=== PATIENT | male | born 1950 | race Caucasian/White ===

== ENCOUNTER → 2022-11-10 14:28 | Outpatient (BNVA) | payer MEDICARE, MEDICAID, SELFPAY | PROVIDERS: PCP Family Medicine; Referring Provider Family Medicine; Visit Provider Internal Medicine | DX: I20.9 Angina pectoris, unspecified (principal); I10 Essential (primary) hypertension | CPT/HCPCS: 93005; 99202 ==

== ENCOUNTER → 2022-12-02 10:54 | Outpatient (REF) | payer MEDICARE, MEDICAID, SELFPAY ==
--- NOTE | 2022-12-02 11:01 | CA_ITS ---
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 Study Quality: Adequate ECG Rhythm: Sinus Conclusions: - 1. Normal LV systolic function with measured LVEF of 65-70% 2. Normal cardiac valvular Dopplers 3. Mildly dilated ascending aorta 3.8 cm 4. Normal RV systolic pressure 5. No pericardial effusion Findings Left Ventricle Normal left ventricular size, thickness, and systolic function. The visually estimated ejection fraction is between 65-70%. Spectral Doppler is indicative of a normal filling pattern. Peak GLS is -16.2%, which is reduced. Wall Motion Rest Echo Findings The basal inferior segment is hypokinetic. All other scored wall segments showed normal motion. Right Ventricle Normal right ventricular cavity size and systolic function. Atria The left atrium is normal in size. There is no evidence of interatrial shunt. The right atrium is normal in size. Aortic Valve The aortic valve was not well visualized. There is no aortic valve stenosis. There is no aortic valve regurgitation. Mitral Valve There is mild anterior and posterior mitral leaflet thickening. There is mild anterior mitral annular calcification. There is trace mitral valve regurgitation. There is no mitral valve stenosis. Pulmonic Valve The pulmonic valve was not well visualized. Tricuspid Valve Likely normal tricuspid valve structure and function. There is mild tricuspid valve regurgitation. The right ventricular systolic pressure is normal. The right ventricular systolic pressure is 27 mmHg. Normal right atrial pressure. There is no evidence of pulmonary hypertension. Great Vessels The pulmonary artery was not well visualized. There is mild dilatation of the ascending aorta measuring 3.80 cm. Venous The inferior vena cava is normal in size and collapses greater than 50% with inspiration. Pericardium/Pleural There is no evidence of pericardial effusion. Prior Study Comparison No prior study available for comparison. Measurements 2D Linear Measurements IVSd: 1.41 0.6-0.9/0.6-1.0 cm LVIDd: 4.92 3.9-5.3/4.2-5.9 cm LVIDd Index: 2.60 2.4-3.2/2.2-3.1 cm/m2 LVIDs: 2.78 2.0-3.6 cm LVPWd: 0.76 0.7-1.1 cm Ao Root: 3.50 2.1-3.5 cm LA Diam: 4.00 2.7-3.8/3.0-4.0 cm LAIDs Index: 2.12 1.5-2.3 cm/m2 LV Mass: 246.80 67-162/88-224 g LV Mass Index: 130.58 43-95/49-115 g/m2 LVOT Diam: 2.20 3.0+(-)1.3 cm 2D Systolic Function EF 4C: 63.10 >55% EF 2C: 72.90 >55% EF BiP: 68.90 >55% Mitral Valve MV Pk E: 0.69 MV PK A: 0.59 MV Decel Time: 301.00 E/A: 1.20 E'Lateral: 6.09 E'Medial: 5.66 E/E' Med: 12.10 E/E' Lat: 11.30 PHT: 88.00 MVA PHT: 2.50 Decel Dickenson: 2.27 Aortic Valve AoV Pk Carson: 1.49 AoV Pk Grad: 9.00 JAZMIN: 2.48 LVOT LVOT Pk Carson: 1.05 LVOT Mn Carson: 0.65 LVOT VTI: 0.20 LVOT Pk Grad: 4.00 LVOT Mn Grad: 2.00 LVOT Diam: 2.20 LVOT Area: 3.80 Diastolic Function MV Pk E: 0.69 MV Pk A: 0.59 E/A: 1.20 E'Medial: 5.66 E/E' Med: 12.10 E' Laterial: 6.09 E/E' Lat: 11.30 Right Ventricle TAPSE (mm): 19.50 TVS' Carson: 14.00 Tricuspid Valve TR Pk Carson: 2.30 TR Pk Grad: 21.00 RA Press: 3.00 RVSP: 27.00 Great Vessels Aorta Ao Root-2D: 3.50 2.0-3.7 cm Ao Asc: 3.80 2.1-3.4 cm Pulmonary Veins Pulm Vein S/D 2.00 Pulmonary Valve PV Pk Carson: 0.98 Peak PV Grad: 4.00 Updated in Other Vendor System with Status of Final Elías Krishnan MD electronically signed on 12/03/2022 10:54:47 AM with status of Final
== END ==
LOC: HO.CARD 10:54
PROVIDERS: PCP Family Medicine; Visit Provider Internal Medicine
DX: I25.119 Atherosclerotic heart disease of native coronary artery with unspecified angina pectoris (principal)
CPT/HCPCS: 93306; 93356

== ENCOUNTER 2023-01-25 10:42 | Outpatient (REF) | payer MEDICARE, MEDICAID, SELFPAY ==
[2023-01-25 12:40] LABS: Anion Gap 12 (12-20); Blood Urea Nitrogen 18 mg/dL (9-16); Calcium 9.4 mg/dL (8.4-10.2); Carbon Dioxide 28 mmol/L (22-29); Chloride 108 mmol/L (96-108); Estimated Glomerular Filt Rate > 60; Glucose Random 83 mg/dL (60-115); Potassium 4.7 mmol/L (3.3-5.1); Sodium 143 mmol/L (135-145)
== END 2023-01-25 10:43 | disposition home or self-care (01) ==
LOC: HO.LAB 10:42
PROVIDERS: PCP Family Medicine; Visit Provider Internal Medicine
DX: I20.9 Angina pectoris, unspecified (principal)
CPT/HCPCS: 36415; 80048

== ENCOUNTER → 2023-02-23 13:10 | Outpatient (BNVA) | payer MEDICARE, MEDICAID, SELFPAY | PROVIDERS: PCP Family Medicine; Referring Provider Family Medicine; Visit Provider Nurse Practitioner Family ==

== ENCOUNTER 2023-04-02 14:36 | Outpatient (REF) | payer MEDICARE, MEDICAID, SELFPAY ==
[2023-04-02 15:56] LABS: Anion Gap 14 (12-20); Blood Urea Nitrogen 15 mg/dL (9-16); Calcium 9.6 mg/dL (8.4-10.2); Carbon Dioxide 26 mmol/L (22-29); Chloride 106 mmol/L (96-108); Estimated Glomerular Filt Rate > 60; Glucose Random 85 mg/dL (60-115); Potassium 4.1 mmol/L (3.3-5.1); Sodium 142 mmol/L (135-145)
== END 2023-04-02 14:37 | disposition home or self-care (01) ==
LOC: HO.LAB 14:36
PROVIDERS: Visit Provider Internal Medicine
DX: I10 Essential (primary) hypertension (principal); I20.9 Angina pectoris, unspecified
CPT/HCPCS: 36415; 80048

== ENCOUNTER 2023-04-19 08:11 | Outpatient (REF) | payer MEDICARE, MEDICAID, SELFPAY ==
[2023-04-19 08:30] LABS: MANUAL DIFF FLAG NO
[2023-04-19 09:06] LABS: Basophils Percent Auto 0.5 % (0-2); Eosinophils Absolute Auto 0.2 X10*3/uL (0.0-0.4); Eosinophils Percent Auto 3.1 % (0-4); Hematocrit 47.9 % (42.0-52.0); Hemoglobin 15.2 g/dl (14.0-18.0); Imm Gran Abs Auto 0.03 X10*3/uL (0.00-0.03); Imm Gran Pct Auto 0.5 % (0.0-0.4); Lymphocytes Absolute Auto 1.4 X10*3/uL (1.2-4.9); Lymphocytes Percent Auto 22.4 % (20-40); Mean Corpuscular HGB Conc 31.7 g/dl (31.0-36.0); Mean Corpuscular Hemoglobin 28.6 pg (27.0-33.0); Mean Platelet Volume 10.3 fL (9.4-12.4); Monocytes Absolute Auto 0.5 X10*3/uL (0.1-1.2); Monocytes Percent Auto 7.4 % (2-11); Neutrophils Absolute Auto 4.2 x10*3/uL (2.0-8.3); Neutrophils Percent Auto 66.1 % (45-73); Platelet Count 189 X10*3/uL (160-400); Red Blood Count 5.32 X10*6/uL (4.60-5.80); Red Cell Distribution Width 13.7 % (11.0-16.0); White Blood Count 6.4 X10*3/uL (4.8-10.8)
[2023-04-19 09:12] LABS: INTERNATIONAL NORM RATIO 1.1 (0.9-1.1); Prothrombin Time 13.4 SEC (11.1-13.3)
[2023-04-19 09:42] LABS: Anion Gap 14 (12-20); Blood Urea Nitrogen 15 mg/dL (9-16); Calcium 9.2 mg/dL (8.4-10.2); Carbon Dioxide 25 mmol/L (22-29); Chloride 107 mmol/L (96-108); Estimated Glomerular Filt Rate > 60; Glucose Random 81 mg/dL (60-115); Potassium 4.7 mmol/L (3.3-5.1); Sodium 141 mmol/L (135-145)
== END 2023-04-19 08:12 | disposition home or self-care (01) ==
LOC: HO.LAB 08:11
PROVIDERS: PCP Family Medicine; Visit Provider Nurse Practitioner
DX: R93.89 Abnormal findings on diagnostic imaging of other specified body structures (principal); I10 Essential (primary) hypertension; I20.9 Angina pectoris, unspecified
CPT/HCPCS: 36415; 80048; 85025; 85610

== ENCOUNTER → 2023-05-13 23:59 | Outpatient (BNV) | payer MEDICARE, MEDICAID, SELFPAY | PROVIDERS: PCP Family Medicine; Visit Provider Internal Medicine Cardiovascular Disease | DX: I20.89 Other forms of angina pectoris (principal); R93.1 Abnormal findings on diagnostic imaging of heart and coronary circulation | CPT/HCPCS: 93458; 93571; 99152 ==

== ENCOUNTER 2023-05-26 14:28 | Outpatient (AMB) | payer MEDICARE, MEDICAID, SELFPAY ==
[2023-05-26 14:32] VITALS: BP 132/74; PULSE 68; BMI 28.5
--- NOTE | 2023-05-26 14:32 | MHC.OFFVIS ---
Intake Vital Signs 05/26/23 14:32 Height 5 ft 6 in Weight 176 lb 5.917 oz BMI 28.5 BP 132/74 Blood Pressure Location Lt brachial Position Sitting Pulse 68 Intake Visit Reasons: Follow up post cardiac cath Intake Note: follow up post cardiac cath feel good A&P Mechanic Required: Yes A&P Mechanic Language: Terrazzo Tile Setter Name: Daughter form signed Information Interpreted: non-clinical & clinical Accompanied by: Daughter Allergies No Known Allergies Allergy (Verified 05/26/23 14:36) Medication List - Last Reconciled 05/26/23 by Tessie Mora NP amlodipine 5 mg PO QAM aspirin 81 mg PO DAILY 90 days blood pressure test kit-large As directed cholecalciferol (vitamin D3) 25 mcg PO QAM hydrochlorothiazide 25 mg PO DAILY metoprolol succinate ER 25 mg PO DAILY rosuvastatin 20 mg PO DAILY HPI HPI Comments History of Present Illness Details 73-year-old male presents for a post cardiac cath follow-up. He is accompanied by his daughter who translates ASL for him. He reports doing well since the cardiac cath. No tenderness, redness, or bruising noted at right radial site. He reports he has occasional chest discomfort in the morning that is muscular in nature. He did no start the amlodipine or metoprolol as he was afraid of possible interactions with his medications,. [facility] Medical History Congenital deafness Essential hypertension Surgical History Hx of colonoscopy (~2012) Hx of appendectomy Family History Mother Cancer Diabetes Father Diabetes Alcohol intake: never Patient Tobacco Use Status: Never used Tobacco Substance Use Type: Marijuana Review of Systems Const Denies chills, Denies fatigue, Denies fever(s), Denies frequent falls, Denies weakness, Denies weight gain and Denies weight loss ENT Denies dizziness Card Denies chest pain, Denies chest pain with activity, Denies syncope, Denies rapid heart rate, Denies pedal edema, Denies irregular heart rhythm, Denies leg edema, Denies lightheadedness, Denies palpitations, Denies dyspnea, Denies dyspnea on exertion, Denies orthopnea and Denies other (LOC) Resp Denies cough, Denies dyspnea and Denies dyspnea on exertion GI Denies hematochezia and Denies change in bowel habits Musc Denies abnormal gait, Denies arthralgias, Denies muscle weakness, Denies numbness, Denies radiating pain into limb and Denies tingling Neuro Denies abnormal gait, Denies dizziness, Denies syncope, Denies frequent falls, Denies numbness, Denies tingling and Denies weakness Endo Denies fatigue and Denies palpitations Physical Exam Vital Signs: Last Vital Signs Pulse 68 05/26/23 14:32 BP 132/74 05/26/23 14:32 BMI result Body Mass Index 28.5 Const General: healthy appearing and no acute distress Orientation/consciousness: patient oriented x3 HEENT Head: Yes normal to inspection Eyes General: appearance normal, both eyes and all related structures Neck Neck: Yes normal visual inspection Chest Chest palpation & inspection: normal inspection of the chest Resp Effort & Inspection: normal respiratory effort Auscultation: clear to auscultation bilaterally Cardio Jugular venous distension: no JVD Palpation: normal PMI Rate: regular rate Rhythm: regular rhythm Heart sounds: S1 normal heart sound present, S2 normal heart sound present, no click, no gallops, no murmurs and no rubs GI Inspection: Yes normal to inspection Palpation (GI): Soft to palpation Skin General skin exam: no rashes or lesions noted Neuro General: patient oriented x3 Extrem Other: Right radial site intact,no erythema, bruising, or tenderness. pulse presents General: Yes normal to inspection Psych Appearance: grossly normal Assessment & Plan Assessment & Plan (1) S/P cardiac cath: Comment: LMCA: Normal. LAD: Mild luminal irregularities (<30%). Lesion in 1st Diag: Mid subsection.75% stenosis . Lesion in Mid LAD: Mid subsection. Lesion in 1st Diag: Ostial.50% stenosis . LCx: Minimal luminal irregularities. RCA: Lesion in R PAV: Ostial.50% stenosis . Code(s): Z98.890 - Other specified postprocedural states (2) Angina pectoris: Code(s): I20.9 - Angina pectoris, unspecified Plan Start cardiac rehab.Continue medications as currently prescribed. Monitor blood pressures periodically. Heart healthy diet, avoidance of salt, and report any new or worsening symptoms. Orders: Orders Cardiac Rehab Today I20.89 - Other forms of angina pectoris, Z98.890 - Other specified postprocedural states Coding Level of Care Code Est Pt Level 3 (73190) Diagnoses S/P cardiac cath Z98.890 Angina pectoris I20.9
== END 2023-05-26 15:00 | disposition home or self-care (01) ==
PROVIDERS: PCP Family Medicine; Visit Provider Nurse Practitioner
DX: Z98.890 Other specified postprocedural states (principal); I20.9 Angina pectoris, unspecified
CPT/HCPCS: 99213

== ENCOUNTER → 2023-05-26 14:28 | Outpatient (BNVA) | payer MEDICARE, MEDICAID, SELFPAY | PROVIDERS: PCP Family Medicine; Visit Provider Nurse Practitioner | DX: I20.9 Angina pectoris, unspecified (principal); I10 Essential (primary) hypertension; Z98.890 Other specified postprocedural states | CPT/HCPCS: 99212 ==